=== PATIENT | female | born 1960 | race Caucasian/White ===

== ENCOUNTER 2019-12-25 10:21 | Outpatient (CLI) | payer OTHER, SELFPAY ==
--- NOTE | 2019-12-25 10:54 | XR_ITS ---
WS: [id number] ANKLE LEFT TECHNIQUE: 2 views of the left ankle CLINICAL INFORMATION: ARTHRITIS COMPARISON: None. FINDINGS: Osteopenia. Normal soft tissues. Degenerative arthritis left ankle mortise. No acute fractu res. XR/XR ankle LT 2V 92010 IMPRESSION: Osteopenia with degenerative arthritis of the ankle mortise
--- NOTE | 2019-12-25 10:54 | XR_ITS ---
WS: [id number] TECHNIQUE: 2 views of the right hand CLINICAL INFORMATION: ARTHRITIS COMPARISON: None. FINDINGS: Osteopenia. Normal metacarpals. Normal MCP joint. Metacarpal heads are normal in appearance. Normal P IP and DIP joints. No evidence of acute fracture or dislocation. Radiocarpal joint: Mild narrowing Carpal bones: Normal. XR/XR hand RT 2V 11387 IMPRESSION: 1. Osteopenia. No acute fractures. 2. Mild narrowing of the radiocarpal joint. 3. No significant erosive changes.
== END 2019-12-25 10:22 | disposition home or self-care (01) ==
LOC: RAD 10:27
PROVIDERS: Visit Provider Dermatology
DX: M13.872 Other specified arthritis, left ankle and foot (principal); M13.841 Other specified arthritis, right hand; M85.841 Other specified disorders of bone density and structure, right hand; M85.872 Other specified disorders of bone density and structure, left ankle and foot
CPT/HCPCS: 73120; 73600